=== PATIENT | male | born 1975 | race American Indian/Alaskan Native ===

== ENCOUNTER 2016-10-21 08:39 | Emergency (ER) | payer OTHER ==
[2016-10-21] MEDS ORDERED: XYLOCAINE 1% 20 mL INFILTRATI ONE (09:32)
[2016-10-21] MEDS ORDERED: MARCAINE 0.5% INFILTRATI ONE (09:32)
[2016-10-21] MEDS ORDERED: NORMODYNE IV ONE ×2 (09:40→11:43)
[2016-10-21] MEDS ORDERED: BOOSTRIX IM ONE (09:40)
--- NOTE | 2016-10-21 09:42 | XRay Report ---
Left hand 3 views: History: Crushing injury. Findings: There is fracture noted the base of the distal phalanx index finger left hand. No dislocation. Impression: Findings as described.
[2016-10-21 09:59] LABS: Basophils % (Auto) 0.8 % (0.0-1.8); Eosinophils % (Auto) 1.2 % (0.0-4.3); Hematocrit 42.3 % (35.5-45.6); Hemoglobin 14.3 gm/dl (11.8-15.2); Mean Corpuscular HGB Conc 34 % (32-34); Mean Corpuscular Hemoglobin 30 pg (28-32); Mean Corpuscular Volume 87 fl (84-94); Platelet Count 197 K/mm3 (140-440); Red Blood Count 4.85 M/mm3 (3.65-5.03); Red Cell Distribution Width 13.9 % (13.2-15.2); White Blood Count 6.5 K/mm3 (4.5-11.0)
[2016-10-21] MEDS ORDERED: ceFAZolin 2 GM in NACL 0.9% 100 ML IV ONE (09:59)
--- NOTE | 2016-10-21 10:01 | Emergency Department Report ---
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 States he does have some distal numbness of the left index finger. Otherwise denies of mental injury. Obviously both digits are quite painful. He states he had a tetanus shot at [employer] approximately 2 months ago. The patient has a history of hypertension. He states he has not taken his blood pressure medicine this morning. He presents with a significantly elevated blood pressure. -: Sudden, minutes(s) Location: left (hand) Severity scale (0 -10): 0 Quality: aching Consistency: constant Improves with: none Worsens with: none Associated Symptoms: denies other symptoms (except as above) Treatments Prior to Arrival: none - Related Data Previous Rx's Medication Instructions Recorded Last Taken Type Cephalexin [Keflex] 500 mg PO TID #20 capsule 10/21/16 Unknown Rx HYDROcodone/APAP 7.5-325 [[place] 1 each PO Q6HR PRN #20 tablet 10/21/16 Unknown Rx 7.5/325] Lisinopril/Hydrochlorothiazide 1 tab PO QDAY #30 tab 10/21/16 Unknown Rx [Zestoretic 20-12.5 mg] amLODIPine [Norvasc] 5 mg PO DAILY #30 tab 10/21/16 Unknown Rx Allergies Allergy/AdvReac Type Severity Reaction Status Date / Time No Known Allergies Allergy Verified 10/21/16 08:46 ED Review of Systems ROS: Stated complaint: LEFT THUMB/INDEX FINGER INJURY Other details as noted in HPI Comment: All other systems reviewed and negative ED Past Medical Hx - Past Medical History Previous Medical History?: Yes Hx Hypertension: Yes - Surgical History Past Surgical History?: No - Social History Smoking Status: Current Every Day Smoker Substance Use Type: None - Medications Home Medications: Home Medications Medication Instructions Recorded Confirmed Last Taken Type Cephalexin [Keflex] 500 mg PO TID #20 capsule 10/21/16 Unknown Rx HYDROcodone/APAP 7.5-325 [[place] 1 each PO Q6HR PRN #20 tablet 10/21/16 Unknown Rx 7.5/325] Lisinopril/Hydrochlorothiazide 1 tab PO QDAY #30 tab 10/21/16 Unknown Rx [Zestoretic 20-12.5 mg] amLODIPine [Norvasc] 5 mg PO DAILY #30 tab 10/21/16 Unknown Rx ED Physical Exam - General Limitations: No Limitations General appearance: alert - Head Head exam: Present: atraumatic - Eye Eye exam: Present: normal appearance - ENT ENT exam: Present: mucous membranes moist - Neck Neck exam: Present: normal inspection - GI/Abdominal GI/Abdominal exam: Absent: distended - Extremities Exam Extremities exam: Present: other (or lacerations of the distal thumb with possible near amputation. There is positive sensation to pinprick at the finger pad. There is a longitudinal laceration of approximately 5-6 cm in length of the dorsum of the left index finger. There is probably a flap. There is decreased sensation of the dorsal flap tissue. Both lacerations appear to be associated with viability of the affected tissue.) - Back Exam Back exam: Present: normal inspection - Neurological Exam Neurological exam: Present: alert, CN II-XII intact - Psychiatric Psychiatric exam: Present: normal mood, anxious - Skin Skin exam: Present: warm, dry. Absent: intact ED Course Vital Signs 10/21/16 10/21/16 10/21/16 08:43 09:35 09:53 Temperature 98.2 F Pulse Rate 82 76 78 Respiratory 16 17 Rate Blood Pressure 192/136 161/117 Blood Pressure 184/125 [Right] O2 Sat by Pulse 97 98 Oximetry 10/21/16 11:08 Temperature Pulse Rate 70 Respiratory 16 Rate Blood Pressure Blood Pressure 170/111 [Right] O2 Sat by Pulse 99 Oximetry - Laceration /Wound Repair Finger Wound Location: upper extremity (left thumb near amputation laceration through the distal nail bed with a small perhaps 0.5-1 cm pedicle.) Wound's Depth, Shape: into muscle (deep into finger pad no apparent bony involvement), nail-avulsed (nail laceration) Wound Explored: no foreign body removed Betadine Prep?: Yes Volume Anesthetic (ccs): 8 (digital and local block) Wound Debrided: extensive (nail completely removed atraumatically to repair nail bed laceration) Wound Repaired With: sutures Suture Size/Type: 4:0, proline Number of Sutures: 4 (4-0 Prolene to repair fingertip) Layer Closure?: Yes Deep Layer Suture Size/Type: 4:0 (the nailbed was approximated using 3 4-0 Vicryl. It was noted that the fingertip was somewhat blanched prior to suturing. It did pink up somewhat with good reapproximation) Number Deep Layer Sutures: 3 (total length 3 cm including nailbed) Sterile Dressing Applied?: Yes Hand Wound Location: upper extremity (left index finger) Wound's Depth, Shape: into muscle (into fascia deeply I do not see a significant tendon injury but it is exposed this is a flap laceration) Wound Explored: clean Betadine Prep?: Yes Anesthesia: 1% Lidocaine, 0.5% Sensorcaine Volume Anesthetic (ccs): 8 (both local and digital) Wound Debrided: moderate Wound Repaired With: sutures Suture Size/Type: 4:0 Number of Sutures: 10 Layer Closure?: No Sterile Dressing Applied?: Yes Progress: Both lacerations achieved good approximation and hemostasis. ED Medical Decision Making - Lab Data Result diagrams: 10/21/16 09:45 10/21/16 09:45 - Medical Decision Making Patient had a near amputation of his distal finger tip thumb and large flap laceration of his index finger. There was evidence of vascular compromise both of the distal thumb and of the tissue close to the suture line of the flap. The flap itself seemed to be reasonably viable. The risks and benefits of repair have been explained to the patient. He states he does not smoke and was counseled against this. He states he's up-to-date with his tetanus. He now admits that he is completely noncompliant with his blood pressure medicine and requiring new prescription. He was previously on lisinopril and amlodipine. This will be renewed. He is dressed and splinted. The importance of close follow-up has been emphasized. He will be given a sling an antibiotic prescription and analgesic. Critical care attestation.: If time is entered above; I have spent that time in minutes in the direct care of this critically ill patient, excluding procedure time. ED Disposition Clinical Impression: Near amputation of finger of left hand, Nailbed injury, Uncontrolled hypertension Laceration of finger of left hand Qualifiers: Encounter type: initial encounter Finger: index finger Damage to nail status: without damage Foreign body presence: without foreign body Qualified Code(s): S61.211A - Laceration without foreign body of left index finger without damage to nail, initial encounter Laceration of finger of left hand with damage to nail Qualifiers: Encounter type: initial encounter Finger: thumb Foreign body presence: without foreign body Qualified Code(s): S61.112A - Laceration without foreign body of left thumb with damage to nail, initial encounter Fracture of distal phalanx of left index finger Qualifiers: Encounter type: initial encounter Fracture type: closed Fracture alignment: displaced Qualified Code(s): S62.631A - Displaced fracture of distal phalanx of left index finger, initial encounter for closed fracture Disposition: DC-01 TO HOME OR SELFCARE Is pt being admited?: No Does the pt Need Aspirin: No Condition: Stable Instructions: Laceration (ED), Finger Fracture (ED), Hypertension (ED) Additional Instructions: These injuries will require close follow-up. Be sure to see orthopedist or company assigned doctor. There is risk of the effected areas turning black. There is also risk of persistent numbness. There is risk of infection. Rx as directed It is essential that you take your high blood pressure medication. Your found to have severe hypertension today. This places him at risk of many medical complications as we have discussed. Prescriptions: amLODIPine [Norvasc] 5 mg PO DAILY #30 tab Cephalexin [Keflex] 500 mg PO TID #20 capsule HYDROcodone/APAP 7.5-325 [[place] 7.5/325] 1 each PO Q6HR PRN #20 tablet PRN Reason: Pain Lisinopril/Hydrochlorothiazide [Zestoretic 20-12.5 mg] 1 tab PO QDAY #30 tab Referrals: TSERING BRIGHT MD [Primary Care Provider] - 3-5 Days AUTUMN SEN MD [Staff Physician] - 2-3 Days Time of Disposition: 11:36
[2016-10-21] MEDS ORDERED: NACL 0.9% 500 ML IR ONE (10:07)
[2016-10-21 10:11] LABS: Anion Gap 18 mmol/L; Blood Urea Nitrogen 11 mg/dL (9-20); Calcium 8.8 mg/dL (8.4-10.2); Carbon Dioxide 24 mmol/L (22-30); Glucose 97 mg/dL (75-100); Potassium 3.7 mmol/L (3.6-5.0); Sodium 143 mmol/L (137-145)
[2016-10-21] MEDS ORDERED: ZOFRAN ONE (10:22)
[2016-10-21] MEDS ORDERED: MORPHINE ONE (10:22)
[2016-10-21] MEDS ORDERED: ZOFRAN IV ONE (10:37)
[2016-10-21] MEDS ORDERED: MORPHINE IV ONE (10:37)
[2016-10-21 13:17] VITALS: BP 159/105
== END 2016-10-21 14:02 | disposition home or self-care (01) ==
LOC: ED 08:39
DX: S62.631A Displaced fracture of distal phalanx of left index finger, initial encounter for closed fracture (principal); S61.112A Laceration without foreign body of left thumb with damage to nail, initial encounter; S61.211A Laceration without foreign body of left index finger without damage to nail, initial encounter
CPT/HCPCS: 11760; 12002; 36415; 73130; 80048; 85025; 96365; 96375; 96376; 99284; J0690; J2270; J2405; 90715

== ENCOUNTER 2018-08-28 07:35 | Emergency (ER) | payer OTHER ==
[2018-08-28 08:11] LABS: Basophils # (Auto) 0.1 K/mm3 (0.0-0.1); Basophils % (Auto) 0.9 % (0.0-1.8); Eosinophils # (Auto) 0.1 K/mm3 (0.0-0.4); Eosinophils % (Auto) 1.6 % (0.0-4.3); Hematocrit 47.3 % (35.5-45.6); Hemoglobin 16.3 gm/dl (11.8-15.2); Lymphocytes # (Auto) 3.1 K/mm3 (1.2-5.4); Lymphocytes % (Auto) 44.1 % (13.4-35.0); Mean Corpuscular HGB Conc 35 % (32-34); Mean Corpuscular Volume 87 fl (84-94); Monocytes # (Auto) 0.4 K/mm3 (0.0-0.8); Monocytes % (Auto) 5.3 % (0.0-7.3); Platelet Count 220 K/mm3 (140-440); Red Blood Count 5.43 M/mm3 (3.65-5.03)
[2018-08-28 08:30] LABS: BUN/Creatinine Ratio 10; Blood Urea Nitrogen 10 mg/dL (9-20); Calcium 9.1 mg/dL (8.4-10.2); Hemolysis Index 15
--- NOTE | 2018-08-28 08:30 | XRay Report ---
PORTABLE CHEST INDICATION: Chest pain. COMPARISON: None similar. FINDINGS: Portable, frontal chest radiograph suggests top normal heart size. Grossly normal mediastinal and hilar contours. Clear lungs. EKG leads. Intact bones. CONCLUSION: No acute chest process, as described. Thank you for the opportunity to participate in this patient's care.
[2018-08-28] MEDS ORDERED: ZOFRAN IV ONE (08:40)
[2018-08-28] MEDS ORDERED: MORPHINE IV ONE (08:40)
[2018-08-28] MEDS ORDERED: NORMODYNE IV ONE ×2 (08:40→08:47)
[2018-08-28 09:27] LABS: INR 0.91 (0.87-1.13)
[2018-08-28 09:28] LABS: Partial Thromboplastin Time 28.2 Sec. (24.2-36.6)
[2018-08-28 09:29] LABS: Creatine Kinase MB 1.2 ng/mL (0.0-4.0)
[2018-08-28 09:30] LABS: Alanine Aminotransferase 93 units/L (7-56); Albumin 4.5 g/dL (3.9-5)
[2018-08-28 09:35] LABS: Bilirubin,Direct < 0.2 mg/dL (0-0.2)
[2018-08-28] MEDS ORDERED: APRESOLINE IV ONE (13:46)
[2018-08-28] MEDS ORDERED: K-DUR PO ONE (13:49)
--- NOTE | 2018-08-28 14:00 | Emergency Department Report ---
ED Chest Pain HPI - General Chief Complaint: Chest Pain Stated Complaint: HBP/CHEST PAIN Time Seen by Provider: 08/28/18 08:39 Source: patient Mode of arrival: Ambulatory Limitations: No Limitations - History of Present Illness Initial Comments: 2-year-old male noncompliant with his blood pressure medicine. He experienced substernal chest discomfort which was sharp and nonradiating at about 3 in the morning. It was intermittent and lasts for hours. That has resolved by the time of my encounter. He does not complain of shortness of breath, nausea, vomiting, sweating or dizziness. Had no headache or focal neurological change. He has no known history of coronary artery disease. MD Complaint: chest pain -: Gradual, hour(s) Onset: during rest Pain Location: substernal Pain Radiation: none Severity: mild, moderate Severity scale (0 -10): 0 Quality: sharp Consistency: intermittent Improves With: nothing Worsens With: nothing re: denies: nausea, vomting, diaphoresis, dyspnea, sense of impending doom Other Symptoms: denies: cough, fever, syncope Treatments Prior to Arrival: none Aspirin use within the Past 7 Days: (0) No - Related Data On Oral Contraceptives: No Home Medications Medication Instructions Recorded Confirmed Last Taken Losartan 25 mg PO DAILY 08/28/18 08/28/18 Unknown Previous Rx's Medication Instructions Recorded Last Taken Type HYDROcodone/APAP 7.5-325 [[place] 1 each PO Q6HR PRN #20 tablet 10/21/16 Unknown Rx 7.5/325] amLODIPine [Norvasc] 5 mg PO DAILY #30 tab 10/21/16 Unknown Rx Losartan/Hydrochlorothiazide 1 each PO QAM #30 tablet 08/28/18 Unknown Rx [Losartan-Hctz 100-25 mg Tab] amLODIPine [Norvasc] 5 mg PO QPM #30 tab 08/28/18 Unknown Rx Allergies Allergy/AdvReac Type Severity Reaction Status Date / Time No Known Allergies Allergy Verified 08/28/18 07:36 Heart Score - HEART Score History: Slightly suspicious EKG: Non-specific Age: < 45 Risk factors: 1-2 risk factors Troponin: < normal limit HEART Score: 2 - Critical Actions Critical Actions: 0-3 pts:0.9-1.7%risk of adverse cardiac event.Candidate for discharge ED Review of Systems ROS: Stated complaint: HBP/CHEST PAIN Other details as noted in HPI Constitutional: denies: chills, fever Eyes: denies: eye pain, eye discharge, vision change ENT: denies: ear pain, throat pain Respiratory: denies: cough, shortness of breath, wheezing Cardiovascular: chest pain. denies: palpitations Endocrine: no symptoms reported Gastrointestinal: denies: abdominal pain, nausea, diarrhea Genitourinary: denies: urgency, dysuria Musculoskeletal: denies: back pain, joint swelling, arthralgia Skin: denies: rash, lesions Neurological: denies: headache, weakness, paresthesias Psychiatric: denies: anxiety, depression Hematological/Lymphatic: denies: easy bleeding, easy bruising ED Past Medical Hx - Past Medical History Hx Hypertension: Yes - Surgical History Past Surgical History?: No - Social History Smoking Status: Current Some Day Smoker Substance Use Type: None - Medications Home Medications: Home Medications Medication Instructions Recorded Confirmed Last Taken Type HYDROcodone/APAP 7.5-325 [[place] 1 each PO Q6HR PRN #20 tablet 10/21/16 08/28/18 Unknown Rx 7.5/325] amLODIPine [Norvasc] 5 mg PO DAILY #30 tab 10/21/16 08/28/18 Unknown Rx Losartan 25 mg PO DAILY 08/28/18 08/28/18 Unknown History Losartan/Hydrochlorothiazide 1 each PO QAM #30 tablet 08/28/18 Unknown Rx [Losartan-Hctz 100-25 mg Tab] amLODIPine [Norvasc] 5 mg PO QPM #30 tab 08/28/18 Unknown Rx ED Physical Exam - General Limitations: No Limitations General appearance: alert, in no apparent distress - Head Head exam: Present: atraumatic, normocephalic - Eye Eye exam: Present: normal appearance, PERRL, EOMI. Absent: scleral icterus - ENT ENT exam: Present: mucous membranes moist, other (left ear with impacted cerumen) - Neck Neck exam: Present: normal inspection. Absent: meningismus - Respiratory Respiratory exam: Present: normal lung sounds bilaterally. Absent: respiratory distress - Cardiovascular Cardiovascular Exam: Present: regular rate, normal rhythm. Absent: systolic murmur, diastolic murmur, rubs, gallop - GI/Abdominal GI/Abdominal exam: Present: soft, normal bowel sounds. Absent: distended, tenderness, guarding, rebound, rigid - Rectal Rectal exam: Present: deferred - Extremities Exam Extremities exam: Present: normal inspection - Back Exam Back exam: Present: normal inspection - Neurological Exam Neurological exam: Present: alert, oriented X3, CN II-XII intact. Absent: motor sensory deficit - Psychiatric Psychiatric exam: Present: normal affect, normal mood - Skin Skin exam: Present: warm, dry, intact, normal color. Absent: rash ED Course Vital Signs 08/28/18 08/28/18 08/28/18 07:39 08:04 08:41 Temperature 98.0 F Pulse Rate 94 H 84 85 Respiratory 17 16 10 L Rate Blood Pressure 187/144 Blood Pressure 200/146 [Left] O2 Sat by Pulse 98 96 96 Oximetry 08/28/18 08/28/18 08/28/18 08:45 08:48 09:06 Temperature Pulse Rate 73 80 82 Respiratory 11 L 16 Rate Blood Pressure 160/118 160/118 Blood Pressure 152/80 [Left] O2 Sat by Pulse 96 96 Oximetry 08/28/18 08/28/18 08/28/18 09:29 12:06 13:40 Temperature Pulse Rate 84 73 74 Respiratory 16 16 16 Rate Blood Pressure Blood Pressure 152/80 150/111 157/120 [Left] O2 Sat by Pulse 97 95 95 Oximetry - Reevaluation(s) Reevaluation #1: Improvement with labetalol. Patient is offered admission to the hospital. He has been strongly recommended for further evaluation of his chest pain. He's been apprised of the risks and benefits and the need for further workup. He will sign out AGAINST MEDICAL ADVICE or be admitted. 08/28/18 13:59 ED Medical Decision Making - Lab Data Result diagrams: 08/28/18 07:53 08/28/18 07:53 Critical care attestation.: If time is entered above; I have spent that time in minutes in the direct care of this critically ill patient, excluding procedure time. ED Disposition Clinical Impression: Uncontrolled hypertension, Impacted cerumen, left ear Chest pain Qualifiers: Chest pain type: unspecified Qualified Code(s): R07.9 - Chest pain, unspecified Disposition: DC-01 TO HOME OR SELFCARE Is pt being admited?: No Does the pt Need Aspirin: No Condition: Stable Instructions: Hypertension (ED), Chest Pain (ED), Cerumen Impaction (ED) Additional Instructions: Rx as directed for your blood pressure. Should decide to have further evaluation of her chest pain, he may return to the emergency department. Earwax removal kits are available [id number]. Prescriptions: Losartan/Hydrochlorothiazide [Losartan-Hctz 100-25 mg Tab] 1 each PO QAM #30 tablet amLODIPine [Norvasc] 5 mg PO QPM #30 tab Referrals: DOUG VÁSQUEZ MD [Primary Care Provider] - 2-3 Days Time of Disposition: 14:06
[2018-08-28 14:20] VITALS: BP 161/95
== END 2018-08-28 14:22 | disposition left against medical advice (07) ==
LOC: ED 07:35
DX: R07.89 Other chest pain (principal); I10 Essential (primary) hypertension; H61.22 Impacted cerumen, left ear
CPT/HCPCS: 36415; 71045; 80048; 80076; 82550; 82553; 83735; 83880; 84484; 85025; 85379; 85610; 85730; 93005; 93010; 96374; J0360

== ENCOUNTER 2018-10-23 18:06 | Emergency (ER) | payer SELFPAY ==
[2018-10-23 18:58] VITALS: BP 172/134
--- NOTE | 2018-10-23 19:01 | Event Note ---
ED Screening Note Date of service: 10/23/18 Time: 18:59 ED Screening Note: This is a 43 y.o. M. that presents to the ER with elevated blood pressure and medication refills. Denies symptoms. This initial assessment/diagnostic orders/clinical plan/treatment(s) is/are subject to change based on patients health status, clinical progression and re- assessment by fellow clinical providers in the ED. Further treatment and workup at subsequent clinical providers discretion. Patient/guardian urged not to elope from the ED as their condition may be serious if not clinically assessed and managed. Initial orders include:
== END 2018-10-23 21:52 | disposition left against medical advice (07) ==
LOC: ED 18:06
DX: I10 Essential (primary) hypertension (principal); Z76.0 Encounter for issue of repeat prescription; Z53.21 Procedure and treatment not carried out due to patient leaving prior to being seen by health care provider

== ENCOUNTER 2019-03-12 17:11 | Emergency (ER) | payer OTHER ==
[2019-03-12 20:24] VITALS: BP 166/113
--- NOTE | 2019-03-12 20:25 | Emergency Department Report ---
Chief Complaint: High BP Stated Complaint: HBP MED REFILL/HANDS SORE Time Seen by Provider: 03/12/19 20:21 - HPI History of Present Illness: pt is a 43 yo male who presents to the ED with c/o medication refill. states he does not have a PCP. he denies any symptoms at all. states he takes amlodipine, losartan, and hctz. states he has not taken all three in a month. vitals with elevated BP pt is asymptomatic the uptodate medical literature does not recommend emergent medication administration in the emergency department for asymptomatic chronic hypertension pt is presenting with a non medical emergency at this time medical screening examination performed and there is no threat to life or limb at this time will refer pt to several primary care clinics and give community resources MSE screening note: Focused history and physical exam performed. ED Disposition for MSE Clinical Impression: Encounter for medical screening examination Disposition: MED SCREENING EXAM-LEFT Is pt being admited?: No Does the pt Need Aspirin: No Condition: Stable Instructions: Chronic Hypertension (ED) Additional Instructions: please follow up with a primary care doctor in the next 2-3 days. take your blood pressure three times a day and keep a log, increase your water intake, eat a low sodium diet, incorporate daily exercise. return to the emergency room for any new or worsening symptoms. Referrals: JOSLYN REILLY MD [Staff Physician] - 2-3 Days [facility] [Outside] - 2-3 Days Time of Disposition: 20:24 Print Language: CITIZEN OF [place]
== END 2019-03-12 20:29 | disposition left against medical advice (07) ==
LOC: ED 17:11
DX: R03.0 Elevated blood-pressure reading, without diagnosis of hypertension (principal)
CPT/HCPCS: 99281

== ENCOUNTER 2019-05-19 07:39 | Emergency (ER) | payer SELFPAY ==
[2019-05-19] MEDS ORDERED: cloNIDine 0.2 MG TAB PO ONE (09:32)
--- NOTE | 2019-05-19 10:49 | Emergency Department Report ---
ED General Adult HPI - General Chief complaint: Recheck/Abnormal Lab/Rx Stated complaint: MED REFILL Time Seen by Provider: 05/19/19 09:48 Source: patient Mode of arrival: Ambulatory Limitations: No Limitations - History of Present Illness Initial comments: 43-year-old obese -[place] male presents emerge department seeking a medication refill. Reports being noncompliant with his medication having last taken of about over a month ago. States that he started a new job and is due to have his insurance he can about a month and a half but he started to notice his blood pressure was elevating in 6 to start therapy to get it reduced. Reports no chest pain, palpitations no nausea, no vomiting, no fever, chills, sweats no no visual changes no tinnitus. -: year(s) Severity scale (0 -10): 0 Improves with: none, medication Worsens with: none Associated Symptoms: other. denies: confusion, chest pain, cough, diaphoresis, headaches, loss of appetite, malaise, nausea/vomiting, syncope, weakness Treatments Prior to Arrival: none - Related Data Home Medications Medication Instructions Recorded Confirmed Last Taken Losartan 25 mg PO DAILY 08/28/18 08/28/18 Unknown Previous Rx's Medication Instructions Recorded Last Taken Type HYDROcodone/APAP 7.5-325 [[place] 1 each PO Q6HR PRN #20 tablet 10/21/16 Unknown Rx 7.5/325] amLODIPine 5 mg PO DAILY #30 tab 10/21/16 Unknown Rx Losartan/Hydrochlorothiazide 1 each PO QAM #30 tablet 08/28/18 Unknown Rx [Losartan-Hctz 100-25 mg Tab] Losartan [Cozaar] 50 mg PO QDAY #30 tablet 05/19/19 Unknown Rx amLODIPine 5 mg PO QPM #30 tab 05/19/19 Unknown Rx hydroCHLOROthiazide [HCTZ] 25 mg PO QDAY #30 tablet 05/19/19 Unknown Rx Allergies Allergy/AdvReac Type Severity Reaction Status Date / Time No Known Allergies Allergy Verified 10/23/18 18:49 ED Review of Systems ROS: Stated complaint: MED REFILL Other details as noted in HPI Comment: All other systems reviewed and negative ED Past Medical Hx - Past Medical History Previous Medical History?: Yes Hx Hypertension: Yes - Social History Smoking Status: Never Smoker Substance Use Type: Marijuana - Medications Home Medications: Home Medications Medication Instructions Recorded Confirmed Last Taken Type HYDROcodone/APAP 7.5-325 [[place] 1 each PO Q6HR PRN #20 tablet 10/21/16 08/28/18 Unknown Rx 7.5/325] amLODIPine 5 mg PO DAILY #30 tab 10/21/16 08/28/18 Unknown Rx Losartan 25 mg PO DAILY 08/28/18 08/28/18 Unknown History Losartan/Hydrochlorothiazide 1 each PO QAM #30 tablet 08/28/18 Unknown Rx [Losartan-Hctz 100-25 mg Tab] Losartan [Cozaar] 50 mg PO QDAY #30 tablet 05/19/19 Unknown Rx amLODIPine 5 mg PO QPM #30 tab 05/19/19 Unknown Rx hydroCHLOROthiazide [HCTZ] 25 mg PO QDAY #30 tablet 05/19/19 Unknown Rx ED Physical Exam - General Limitations: No Limitations General appearance: alert, in no apparent distress - Head Head exam: Present: atraumatic, normocephalic - Eye Eye exam: Present: normal appearance - ENT ENT exam: Present: mucous membranes moist - Neck Neck exam: Present: normal inspection - Respiratory Respiratory exam: Present: normal lung sounds bilaterally. Absent: respiratory distress - Cardiovascular Cardiovascular Exam: Present: regular rate, normal rhythm. Absent: systolic murmur, diastolic murmur, rubs, gallop - GI/Abdominal GI/Abdominal exam: Present: soft, normal bowel sounds - Rectal Rectal exam: Present: deferred - Extremities Exam Extremities exam: Present: normal inspection - Back Exam Back exam: Present: normal inspection - Neurological Exam Neurological exam: Present: alert, oriented X3 - Psychiatric Psychiatric exam: Present: normal affect, normal mood - Skin Skin exam: Present: warm, dry, intact, normal color. Absent: rash ED Course Vital Signs 05/19/19 05/19/19 05/19/19 07:43 09:35 10:44 Temperature 98.0 F Pulse Rate 98 H 88 78 Respiratory 18 Rate Blood Pressure 201/139 201/139 Blood Pressure 161/122 [Left] O2 Sat by Pulse 97 Oximetry ED Medical Decision Making - Medical Decision Making 43-year-old obese [place] male noncompliant with current medical medication regimen presents emerged department with asymptomatic hypertension. He was treated accordingly with clonidine which improved his blood pressure into the 160s over the in the 90s he remained asymptomatic throughout the hospital stay. Encouraged him to follow-up with primary care for definitive treatment and management of his hypertension and advised him of the appropriate location to follow-up for medications refills. During his hospital visit he did not display any symptoms for hypertensive emergency. Critical care attestation.: If time is entered above; I have spent that time in minutes in the direct care of this critically ill patient, excluding procedure time. ED Disposition Clinical Impression: HTN (hypertension) Disposition: DC-01 TO HOME OR SELFCARE Is pt being admited?: No Does the pt Need Aspirin: No Condition: Stable Instructions: Hypertension (ED) Prescriptions: amLODIPine 5 mg PO QPM #30 tab Losartan [Cozaar] 50 mg PO QDAY #30 tablet hydroCHLOROthiazide [HCTZ] 25 mg PO QDAY #30 tablet Referrals: JOSLYN REILLY MD [Staff Physician] - 3-5 Days
[2019-05-19 11:46] VITALS: BP 154/112
== END 2019-05-19 11:44 | disposition home or self-care (01) ==
LOC: ED 07:39
DX: I10 Essential (primary) hypertension (principal); F12.10 Cannabis abuse, uncomplicated; Z79.899 Other long term (current) drug therapy
CPT/HCPCS: 93005; 93010; 99282